=== PATIENT | female | born 1985 | race Asian ===

== ENCOUNTER 2022-05-03 10:58 | Outpatient (REF) | payer OTHER, SELFPAY ==
[2022-05-03 11:43] LABS: Hemoglobin 11.2 g/dl (12.0-16.0); Mean Corpuscular HGB Conc 31.1 g/dl (31.0-35.0); Mean Corpuscular Hemoglobin 25.5 pg (27.0-33.0); Mean Platelet Volume 9.1 fL (9.4-12.3); Platelet Count 421 X10*3/uL (160-400); Red Blood Count 4.39 X10*6/uL (4.20-5.50); Red Cell Distribution Width 13.2 % (11.0-16.0)
[2022-05-03 12:36] LABS: Alanine Aminotransferase 13 U/L (0-31); Albumin Level 4.2 g/dL (3.5-5.0); Alkaline Phosphatase 69 U/L (39-117); Anion Gap 14 (12-20); Aspartate Amino Transferase 19 U/L (5-31); Bilirubin Total 0.4 mg/dL (0.0-1.0); Blood Urea Nitrogen 11 mg/dL (9-16); Calcium 9.2 mg/dL (8.4-10.2); Carbon Dioxide 23 mmol/L (22-29); Chloride 106 mmol/L (96-108); Cholesterol 189 mg/dL; Estimated Glomerular Filt Rate > 60; Glucose Fasting 90 mg/dL (60-99); HDL Cholesterol 49 mg/dL; LDL Cholesterol Calculated 132 mg/dl; Potassium 4.7 mmol/L (3.3-5.1); Sodium 138 mmol/L (135-145); Total Protein 7.9 g/dL (6.5-8.0); Triglycerides 40 mg/dL
[2022-05-03 13:00] LABS: TSH reflex Free T4 3.45 uIU/mL (0.32-4.0)
== END 2022-05-03 10:59 | disposition home or self-care (01) ==
LOC: HO.LAB 10:58
PROVIDERS: PCP Hospitalist; Visit Provider Hospitalist
DX: Z00.00 Encounter for general adult medical examination without abnormal findings (principal)
CPT/HCPCS: 36415; 80053; 80061; 84443; 85027

== ENCOUNTER 2022-07-29 10:24 | Outpatient (REF) | payer OTHER, SELFPAY ==
[2022-07-29 11:23] LABS: Amylase 56 U/L (28-100); Lipase 24 U/L (8-78)
== END 2022-07-29 10:25 | disposition home or self-care (01) ==
LOC: HO.LAB 10:24
PROVIDERS: PCP Hospitalist; Visit Provider Hospitalist
DX: R10.9 Unspecified abdominal pain (principal); R14.2 Eructation; Z87.19 Personal history of other diseases of the digestive system
CPT/HCPCS: 36415; 82150; 83690

== ENCOUNTER 2022-08-10 14:05 | Outpatient (REF) | payer OTHER, SELFPAY ==
[2022-08-10 16:01] LABS: Iron 28 mcg/dL (30-160); Percent Iron Saturation 10 % (15-50); Total Iron Binding Capacity 281 mcg/dL (228-428); Unsaturated Iron Binding 253 ug/dL
[2022-08-10 16:32] LABS: Folate 5.1 ng/mL (> or = 4.0); Vitamin B12 346 pg/mL (200-900)
== END 2022-08-10 14:06 | disposition home or self-care (01) ==
LOC: HO.LAB 14:05
PROVIDERS: PCP Hospitalist; Visit Provider Hospitalist
DX: D64.9 Anemia, unspecified (principal)
CPT/HCPCS: 36415; 82607; 82746; 83540

== ENCOUNTER 2022-08-23 14:38 | Outpatient (REF) | payer OTHER, SELFPAY ==
[2022-08-24 16:13] LABS: CT PCR NOT DETECTED (Not Detect.); NG PCR NOT DETECTED (Not Detect.)
[2022-08-25 14:34] LABS: BV Int Neg Control Negative (Negative); BV Int Pos Control Positive (Positive)
[2022-08-26 05:39] LABS: HPV mRNA E6/E7 rflx Not Detected (Not Detected)
== END 2022-08-23 14:39 | disposition home or self-care (01) ==
LOC: HO.LNP 14:38
PROVIDERS: PCP Hospitalist; Visit Provider Advanced Practice Midwife
DX: Z01.419 Encounter for gynecological examination (general) (routine) without abnormal findings (principal); Z11.51 Encounter for screening for human papillomavirus (HPV); Z87.42 Personal history of other diseases of the female genital tract
CPT/HCPCS: 0353U; 87480; 87510; 87624; 87660; 88142

== ENCOUNTER → 2022-09-06 15:02 | Outpatient (BNVA) | payer OTHER, SELFPAY | PROVIDERS: PCP Hospitalist; Visit Provider Physician Assistant | DX: K80.20 Calculus of gallbladder without cholecystitis without obstruction (principal); R14.2 Eructation | CPT/HCPCS: 99202 ==

== ENCOUNTER → 2022-09-13 15:20 | Outpatient (BNVA) | payer OTHER, SELFPAY | PROVIDERS: PCP Hospitalist; Referring Provider Advanced Practice Midwife; Visit Provider Surgery | DX: N63.25 Unspecified lump in the left breast, overlapping quadrants (principal); K80.20 Calculus of gallbladder without cholecystitis without obstruction; K58.9 Irritable bowel syndrome, unspecified; D64.9 Anemia, unspecified; R19.7 Diarrhea, unspecified | CPT/HCPCS: 99202 ==

== ENCOUNTER 2022-09-13 16:00 | Outpatient (REF) | payer OTHER, SELFPAY ==
[2022-09-13 16:10] LABS: MANUAL DIFF FLAG NO
[2022-09-13 17:05] LABS: Basophils Absolute Auto 0.1 X10*3/uL (0.0-0.2); Basophils Percent Auto 0.7 % (0-2); Eosinophils Absolute Auto 0.4 X10*3/uL (0.0-0.4); Eosinophils Percent Auto 4.7 % (0-4); Hematocrit 36.5 % (37.0-47.0); Hemoglobin 11.5 g/dl (12.0-16.0); Imm Gran Abs Auto 0.01 X10*3/uL (0.00-0.03); Imm Gran Pct Auto 0.1 % (0.0-0.4); Lymphocytes Absolute Auto 2.5 X10*3/uL (1.2-4.9); Lymphocytes Percent Auto 29.9 % (20-40); Mean Corpuscular HGB Conc 31.5 g/dl (31.0-35.0); Mean Corpuscular Hemoglobin 25.6 pg (27.0-33.0); Mean Corpuscular Volume 81.1 fL (80.0-98.0); Mean Platelet Volume 9.1 fL (9.4-12.3); Monocytes Absolute Auto 0.4 X10*3/uL (0.1-1.2); Monocytes Percent Auto 4.3 % (2-11); Neutrophils Absolute Auto 5.1 x10*3/uL (2.0-8.3); Neutrophils Percent Auto 60.3 % (45-73); Platelet Count 393 X10*3/uL (160-400); Red Cell Distribution Width 13.4 % (11.0-16.0); White Blood Count 8.4 X10*3/uL (4.8-10.8)
[2022-09-13 18:13] LABS: Alanine Aminotransferase 14 U/L (0-31); Albumin Level 4.3 g/dL (3.5-5.0); Alkaline Phosphatase 69 U/L (39-117); Anion Gap 11 (12-20); Aspartate Amino Transferase 18 U/L (5-31); Bilirubin Total 0.3 mg/dL (0.0-1.0); Blood Urea Nitrogen 8 mg/dL (9-16); Calcium 9.4 mg/dL (8.4-10.2); Carbon Dioxide 27 mmol/L (22-29); Chloride 105 mmol/L (96-108); Estimated Glomerular Filt Rate > 60; Glucose Random 94 mg/dL (60-115); Potassium 4.1 mmol/L (3.3-5.1); Sodium 139 mmol/L (135-145); Total Protein 7.8 g/dL (6.5-8.0)
[2022-09-13 18:27] LABS: Ferritin 22 ng/mL (10-122)
[2022-09-17 08:54] LABS: Transglutaminase IgA <1.0 U/mL
[2022-09-19 13:39] LABS: Endomysial IgA Antibody Negative (Negative)
== END 2022-09-13 16:01 | disposition home or self-care (01) ==
LOC: HO.US 16:00
PROVIDERS: PCP Hospitalist; Visit Provider Physician Assistant
DX: K80.20 Calculus of gallbladder without cholecystitis without obstruction (principal); D64.9 Anemia, unspecified; K52.9 Noninfective gastroenteritis and colitis, unspecified
CPT/HCPCS: 36415; 80053; 82728; 85025; 86231; 86364

== ENCOUNTER 2022-09-21 14:00 | Outpatient (REF) | payer OTHER, SELFPAY ==
--- NOTE | ~2022-09-21 | MM_ITS ---
EXAMINATION: MM DIAGNOSTIC DIGITAL BREAST TOMOSYNTHESIS, BILATERAL US DIAGNOSTIC ULTRASOUND BREAST, BILATERAL CLINICAL INFORMATION: 37-year-old with palpable concern periareolar outer left breast. No prior breast imaging. No known family history breast cancer. TC score 11%. COMPARISON: None (current study represents initial baseline exam). TECHNIQUE: Digital breast tomosynthesis is performed in both the craniocaudal and mediolateral oblique views along with computer-aided detection (CAD). Synthesized 2D images are generated from the tomosynthesis. Ultrasound of both breasts is performed using grayscale imaging and color Doppler without and with harmonics. Left breast ultrasound is targeted to the area of palpable concern. Patient is able to point to the area at time of imaging. Ultrasound right breast is targeted to the mid upper breast corresponding to small benign-appearing nodule on mammography. FINDINGS: The breasts are heterogeneously dense, which may obscure small masses (ACR BI-RADS breast composition Category c). The palpable concern corresponds to a smooth oval mass just under 2 cm periareolar 3:00 position with partly obscured margins. The right breast has a circumscribed nodule approximately 0.5 cm mid 11:00 position. Remainder of the bilateral breasts show no significant mass or architectural abnormality. There are scattered benign round calcifications and benign rim calcification on right. The axilla and skin contours are unremarkable. Ultrasound left breast demonstrates a circumscribed smooth solid mass at site of clinically palpable concern and corresponding to the mass on mammography 3:00 position measuring 2.1 cm x 1.0 cm. There is scattered internal color flow. Mild increased through-transmission of sound. This most likely represents a fibroadenoma. Ultrasound right breast demonstrates scattered small simple cysts central upper breast, largest measuring 1.2 cm. One of the smaller cysts corresponds to finding on mammography. There is no solid mass or architectural abnormality. Results are discussed with the patient at time of visit. Patient notes the probable fibroadenoma left breast mass is chronic, a few years in duration, but does appear slightly larger. Management options are discussed. Patient is in favor of ultrasound-guided sampling. MM/MM tomosynthesis diagnostic BI IMPRESSION: Left: -Palpable mass 3:00 periareolar breast 2.1 cm, likely fibroadenoma. Right: -No mammographic evidence of malignancy. ASSESSMENT: BI-RADS 4: Suspicious (subcategory 4A: Low suspicion for malignancy) RECOMMENDATION: Ultrasound-guided core biopsy left breast mass. This patient's information was entered into a reminder system with a target due date for their next mammogram.
== END 2022-09-21 14:01 | disposition home or self-care (01) ==
LOC: HO.MAMMO 14:00
PROVIDERS: PCP Hospitalist; Visit Provider Advanced Practice Midwife
DX: N63.25 Unspecified lump in the left breast, overlapping quadrants (principal); N63.11 Unspecified lump in the right breast, upper outer quadrant
CPT/HCPCS: 76642; 77062; 77066

== ENCOUNTER 2022-09-21 15:46 | Outpatient (REF) | payer OTHER, SELFPAY ==
--- NOTE | ~2022-09-21 | US_ITS ---
EXAMINATION: US ABDOMEN COMPLETE CLINICAL INFORMATION: Calculus in gallbladder without cholecystitis without obstruction. COMPARISON: None available. TECHNIQUE: Real-time imaging of the abdominal viscera. FINDINGS: PANCREAS: Normal. ABDOMINAL AORTA: The proximal, mid, and distal segments are normal in caliber. INFERIOR VENA CAVA: Visualized portions are normal. LIVER: Normal. The liver is normal in size. The liver contour is normal. Parenchymal echogenicity is normal. No focal hepatic lesion. There is no intrahepatic biliary duct dilatation seen. GALLBLADDER: Negative sonographic Jacobson sign. The gallbladder is physiologically distended. Multiple mobile gallstones are present. No evidence of gallbladder wall thickening or pericholecystic fluid. COMMON BILE DUCT: Normal in caliber measuring 0.2 cm in diameter. RIGHT KIDNEY: Normal. No hydronephrosis. No renal calculi or focal parenchymal lesions. The kidney measures 12.2 cm in maximum dimension. LEFT KIDNEY: Normal. No hydronephrosis. No renal calculi or focal parenchymal lesions. The kidney measures 10.8 cm in maximum dimension. SPLEEN: Normal. The spleen measures 9.2 cm in maximum dimension. FREE FLUID: None. US/US abdomen complete IMPRESSION: Cholelithiasis without evidence of acute cholecystitis.
== END 2022-09-21 15:47 | disposition home or self-care (01) ==
LOC: HO.US 15:46
PROVIDERS: PCP Hospitalist; Visit Provider Physician Assistant
DX: K80.20 Calculus of gallbladder without cholecystitis without obstruction (principal)
CPT/HCPCS: 76700

== ENCOUNTER 2022-09-27 10:05 | Outpatient (REF) | payer OTHER, SELFPAY ==
--- NOTE | ~2022-09-27 | MM_ITS ---
EXAMINATION: ULTRASOUND GUIDED CORE BIOPSY BREAST, LEFT POST PROCEDURE DIGITAL BREAST TOMOSYNTHESIS, LEFT CLINICAL INFORMATION: Circumscribed solid mass 2.1 cm anterior left breast, likely fibroadenoma. Age 37. TC score 11%. COMPARISON: Mammography and bilateral breast ultrasound 09/21/2022. FINDINGS: Proper informed consent is obtained from the patient after discussion of the procedure, potential risks and complications, and alternatives. Patient was given an opportunity for questions. The patient appeared to understand. The patient consented to the procedure and signed the consent form. GUIDANCE: Ultrasound-guided; aseptic technique. LESION: Circumscribed solid oval mass anterior left breast, 2.1 cm, likely fibroadenoma. APPROACH: Oblique lateral medial. ANESTHESIA: 9 mL carbonated 1% lidocaine. DERMATOTOMY: Single skin lauro dermatotomy performed. NEEDLE: 14-gauge Achieve core biopsy device with 13.5-gauge co-axial guide needle. CORES: 4. CLIP: HydroMARK; shape: butterfly. POST PROCEDURE DIGITAL BREAST TOMOSYNTHESIS, LEFT: The post biopsy mammogram is performed in separate room using separate digital breast tomosynthesis equipment from the biopsy procedure. CC and ML views are obtained.Synthesized images are also obtained from the tomography. The breasts are heterogeneously dense, which may obscure small masses (breast composition category: c). The clip marker is in position. No gross hematoma. The patient tolerated the procedure well. No immediate complications. Home instructions reviewed with the patient. Final pathology results are pending. MM/MM tomosynthesis diagnostic LT IMPRESSION: 1. Status post ultrasound-guided core biopsy left breast. 2. Clip placed: HydroMARK; shape: butterfly. 3. Pathology pending. An addendum report will be issued.
[2022-09-27] MEDS: Sodium Bicarbonate 8.4% 50 MEQ/50 ML VIAL SUBCUT (11:14)
[2022-09-27] MEDS: Lidocaine HCl 1 % 20 ML VIAL 10 ML SUBCUT (11:15)
== END 2022-09-27 10:06 | disposition home or self-care (01) ==
LOC: HO.MAMMO 10:05
PROVIDERS: PCP Hospitalist; Visit Provider Hospitalist
DX: N63.25 Unspecified lump in the left breast, overlapping quadrants (principal)
CPT/HCPCS: 19083; 77061; 77065; 88305

== ENCOUNTER → 2022-10-04 15:04 | Outpatient (BNVA) | payer OTHER, SELFPAY | PROVIDERS: PCP Hospitalist; Referring Provider Hospitalist; Visit Provider Surgery | DX: R92.8 Other abnormal and inconclusive findings on diagnostic imaging of breast (principal); D24.2 Benign neoplasm of left breast | CPT/HCPCS: 99212 ==

== ENCOUNTER → 2023-03-07 14:30 | Outpatient (BNV) | payer OTHER, SELFPAY | PROVIDERS: Visit Provider Radiology Diagnostic Radiology | DX: N63.25 Unspecified lump in the left breast, overlapping quadrants (principal) | CPT/HCPCS: 77061; 77065 ==

== ENCOUNTER 2023-03-07 14:34 | Outpatient (REF) | payer OTHER, SELFPAY ==
--- NOTE | ~2023-03-07 | MM_ITS ---
EXAMINATION: MM DIAGNOSTIC DIGITAL BREAST TOMOSYNTHESIS, LEFT CLINICAL INFORMATION: 6 month follow-up benign left breast biopsy of 3:00 retroareolar fibroadenoma. No evidence of malignancy or atypia. COMPARISON: Mammography: 09/27/2022, 09/21/2022. ULTRASOUND: 09/01/2022. 09/27/2022 ultrasound guided breast biopsy. TECHNIQUE: Digital left breast tomosynthesis is performed in both the craniocaudal and mediolateral oblique views along with computer-aided detection (CAD). Synthesized 2D images are generated from the tomosynthesis. FINDINGS: The breasts are heterogeneously dense, which may obscure small masses (ACR BI-RADS breast composition Category c). Stable biopsied 2.1 cm lobular mass in the 3:00 retroareolar axis consistent with fibroadenoma. There are scattered dystrophic type benign calcifications in the left breast. No developing masses, developing suspicious clustered calcifications, or developing regions of architectural distortion in the left breast. MM/MM tomosynthesis diagnostic LT IMPRESSION: Benign findings left breast. No findings suspicious for malignancy. Stable 2.1 cm fibroadenoma 3:00 left breast periareolar region appears unchanged with internal butterfly biopsy clip. Biopsy demonstrated no evidence of atypia or malignancy. Recommend the patient return to routine annual screening mammography at age 42. ASSESSMENT: BI-RADS BI-RADS 2 - Benign Findings RECOMMENDATION: Mammo at 42 or earlier if clinically needed Results were provided to the patient at time of visit by the technologist. This patient's information was entered into a reminder system with a target due date for their next mammogram.
== END 2023-03-07 14:35 | disposition home or self-care (01) ==
LOC: HO.MAMMO 14:34
PROVIDERS: Visit Provider Surgery
DX: R92.8 Other abnormal and inconclusive findings on diagnostic imaging of breast (principal)
CPT/HCPCS: 77061; 77065

== ENCOUNTER 2025-04-09 16:03 | Outpatient (AMB) | payer OTHER, SELFPAY ==
--- NOTE | 2025-04-09 16:05 | A.OFFVIS_ITS ---
Vital Signs 04/09/25 16:11 Height 5 ft 5 in Weight 165 lb 5.547 oz BMI 27.5 Blood Pressure Location Lt brachial Position Sitting Intake Visit Reasons: Belching symptoms Intake Note: Patient complex follow up for Belching symptoms/Vee dumont was 09/06/2022. Patient cc: abdominal pain on and off, constipation, acid reflux with some burning sensation and loud burping. Hx of gallstone, she did an US on 2022 and she wanted to know the results. Animal Treatment Investigator Required: No Accompanied by: Self / Same As Patient Allergies Seasonal Allergies Allergy (Mild, Verified 04/09/25 16:05) Unknown fruits Allergy (Mild, Uncoded 10/04/22 15:36) Unknown Medication List - Last Reconciled 04/09/25 by Alisson Grijalva CNP HPI HPI Belching symptoms: Details: Patient is a 39-year-old female without significant PMH. Last visit with BRYON Samaniego 09/06/2022 for belching Her primary complaints are excessive gas, mostly manifesting as belching, and a sensation of something being stuck in her abdomen or back. She has also experienced heartburn and regurgitation of food or liquid particles within the last couple of months. The patient reports occasional sharp pain in the right upper quadrant. She has a known history of gallstones since approximately 2013, which were confirmed via an abdominal ultrasound in August 2022. The 2022 ultrasound showed multiple gallstones but was otherwise normal, with no abnormalities noted in the liver, bile ducts, kidneys, or spleen. She has not had a surgical follow-up for her gallstones. Her appetite is good, and her weight has been stable. She has daily bowel movements and denies dysphagia, significant nausea or vomiting, or blood in the stool. She has a history of low iron, for which she previously took an iron supplement but is not currently taking it. She reports other concerns, including intermittent swelling of her fingers and feet and a rash around her vagina extending into her buttock area, which is associated with some reddish discoloration on wiping. That she attributes to vaginal bleeding. The patient does not currently have a primary care provider. Patient denies: fever/chills, n/v, appetite changes, dysphasia, unintentional wt loss or melena/hematochezia. Social hx: -denies ETOH use -denies recreational drug use -non-smoker - family hx as below -denies personal hx of CA -denies significant cardiopulmonary history -tolerated anesthesia in the past without difficulty [facility] Medical History (Updated 04/10/25 @ 08:01 by Alisson Grijalva CNP) MARISOL (iron deficiency anemia) Right upper quadrant pain No pertinent past medical history Surgical History History of repair of hiatal hernia S/P appendectomy Family History Father Diabetes Hypertension Paternal Grandfather Lung cancer Mother Hypertension Maternal Grandmother Liver cancer Social History Housing: House Patient Tobacco Use Status: Never used Tobacco e-Cigarette/Vaping Use: Never Used Second Hand Smoke Exposure: No service: No Current occupational status: employed Current occupational exposures/hazards: No Female Reproductive History Menstrual Age of Menarche: 16 Review of Systems Const Reports as per HPI ENT Reports as per HPI Card Reports as per HPI Resp Reports as per HPI GI Reports as per HPI Reports as per HPI Physical Exam Vital Signs: BMI result Body Mass Index 27.5 Const General: healthy appearing, no acute distress and well developed Nutritional Appearance: average body habitus Orientation/consciousness: patient oriented x3 HEENT Head: Yes normal to inspection, Yes normocephalic and Yes atraumatic Face and sinus: Yes normal facial exam Eyes General: appearance normal, both eyes and all related structures Neck Neck: Yes normal visual inspection Resp Effort & Inspection: normal respiratory effort, able to speak in complete sentences, no tracheal deviation and symmetric chest movement Cardio Jugular venous distension: no JVD GI Inspection: Yes normal to inspection and No distended Palpation (GI): Soft to palpation, not firm, nontender and No hepatosplenomegaly present Auscultation: normal bowel sounds Neuro General: patient oriented x3 Gait exam (Neuro): Normal gait present Psych Appearance: grossly normal Mental Status: mental status grossly normal Speech and movement: Normal speech and movement present Affect: normal affect Attitude: cooperative Thought process: Normal thought process present Thought content: Normal thought content present Insight: Good insight present (Psych) Judgement: Good judgement present (Psych) Results Reviewed Results Reviewed: Date of Service: 09/21/22 Procedure(s): US abdomen complete Accession Number(s): [id number] cc: Vee Romero PA-C~ EXAMINATION: US ABDOMEN COMPLETE CLINICAL INFORMATION: Calculus in gallbladder without cholecystitis without obstruction. COMPARISON: None available. TECHNIQUE: Real-time imaging of the abdominal viscera. FINDINGS: PANCREAS: Normal. ABDOMINAL AORTA: The proximal, mid, and distal segments are normal in caliber. INFERIOR VENA CAVA: Visualized portions are normal. LIVER: Normal. The liver is normal in size. The liver contour is normal. Parenchymal echogenicity is normal. No focal hepatic lesion. There is no intrahepatic biliary duct dilatation seen. GALLBLADDER: Negative sonographic Jacobson sign. The gallbladder is physiologically distended. Multiple mobile gallstones are present. No evidence of gallbladder wall thickening or pericholecystic fluid. COMMON BILE DUCT: Normal in caliber measuring 0.2 cm in diameter. RIGHT KIDNEY: Normal. No hydronephrosis. No renal calculi or focal parenchymal lesions. The kidney measures 12.2 cm in maximum dimension. LEFT KIDNEY: Normal. No hydronephrosis. No renal calculi or focal parenchymal lesions. The kidney measures 10.8 cm in maximum dimension. SPLEEN: Normal. The spleen measures 9.2 cm in maximum dimension. FREE FLUID: None. US/US abdomen complete IMPRESSION: Cholelithiasis without evidence of acute cholecystitis. Assessment & Plan Assessment & Plan (1) Belching symptom: Code(s): R14.2 - Eructation Category: Medical Plan: To rule out H. pylori as a cause for her symptoms, an H. pylori urea breath test will be performed in the office at pt earliest convenience. - If the test is positive, she will be treated with a 14-day course of quadruple therapy. - The patient was provided with education and a handout on a low-FODMAP diet to help manage gas-related symptoms. - The patient declined a prescription for as-needed simethicone, stating it was not effective for her in the past. (2) Gallstones: Code(s): K80.20 - Calculus of gallbladder without cholecystitis without obstruction Category: Medical Plan: Given the two-year interval since her last imaging, an updated abdominal ultrasound will be ordered. - A referral will be placed for a consultation with General Surgery to evaluate for cholecystectomy. (3) MARISOL (iron deficiency anemia): Code(s): D50.9 - Iron deficiency anemia, unspecified Category: Medical Qualifiers: Iron deficiency anemia type: unspecified iron deficiency Qualified Code(s): D50.9 - Iron deficiency anemia, unspecified Plan: Due to her history of low iron, fasting labs including a CBC will be ordered to re-evaluate her for anemia. Plan Follow-up after US or sooner as needed Time: I spent a total of 30 minutes on the date of encounter which includes: Preparing to see the patient (reviewed previous documentation, test results and medical history) Performing a medically appropriate exam and/or evaluation Ordering medications, tests, and procedures Documenting clinical information in the health record Orders: Orders US abdomen complete 04/09/25 K80.20 - Calculus of gallbladder without cholecystitis without obstruction Comprehensive [place]. Panel Fast 04/09/25 K80.20 - Calculus of gallbladder without cholecystitis without obstruction, R10.11 - Right upper quadrant pain IRON PROFILE 04/09/25 D64.9 - Anemia, unspecified H Pylori Breath Test 04/09/25 R14.2 - Eructation Complete Blood Count Auto Diff 04/09/25 D64.9 - Anemia, unspecified Referrals General Surgery Referral K80.20 - Calculus of gallbladder without cholecystitis without obstruction Patient Instructions: It is highly recommended that you find a primary care provider (PCP) for your overall health needs and for issues not related to your digestive system, such as the ASSEMBLER CONVERTIBLE TOP symptoms you described. Coding Level of Care Code Established Pt Est Pt Level 4 (09578) Patient Type Established Diagnoses Belching symptom R14.2 Gallstones K80.20 Iron deficiency anemia, unspecified iron deficiency anemia type D50.9 Iron deficiency anemia type: unspecified iron deficiency
[2025-04-09 16:11] VITALS: BMI 27.5
--- OUTSIDE RECORDS SUMMARY | 2025-04-10 00:46 | XMS_ITS | Clinical Summary ---
Author Organization [facility] Address [address] [place] [address] Phone Care Team Providers Care Photo Tech Name Role Phone Physician, No Pcp Primary Care Provider Unavaila ble Allergies No known active allergies Social History Tobacco Use Types Packs/Day Years Used Date Smoking Tobacco: Never Assessed Comments No Sex and Gender Information Value Date Recorded Sex Assigned at Not on file Legal Sex Female 9:42 PM EDT Gender Identity Not on file Sexual Orientation Not on file Last Filed Vital Signs Vital Sign Reading Time Taken Comments Blood Pressure 105/81 01/03/2025 9:51 PM EDT Pulse 67 01/03/2025 9:51 PM EDT Temperature 36.5 C (97.7 F) 01/03/2025 9:51 PM EDT Respiratory Rate 16 01/03/2025 9:51 PM EDT Oxygen Saturation 100% 01/03/2025 9:51 PM EDT Inhaled Oxygen Concentration - - Weight 77 kg (169 lb 12.1 oz) 01/03/2025 9:51 PM EDT Height 167.6 cm (5' 6 ) 01/03/2025 9:51 PM EDT Body Mass Index 27.4 01/03/2025 9:51 PM EDT Plan of Treatment Health Maintenance Due Date Last Done Comments DTaP,Tdap,and Td Vaccines (1 - Tdap) 2006 Hepatitis B Vaccines (1 of 3 - 19+ 3-dose series) 2006 Cervical Cancer Screening: P ap Smear 2008 HPV Vaccines (1 - 3-dose SCD M series) 2014 Depression Screening 05/01/2024 COVID-19 Vaccine ( - 2024-2 6 season) 2024 Influenza Vaccine (#1) 2024 HIV Screening 01/03/2025 Hepatitis C Screening 01/03/2025 Social Influencers of Health Screening 01/03/2025 RSV Immunization Adult Patie nts (1 - 1-dose 75+ series) 2062 HIB Vaccines Aged Out No longer eligi ble based on patient's age to complete this topic Hepatitis A Vaccines Aged Out No long er eligible based on patient's age to complete this topic IPV Vaccines Aged Out No longer eligi ble based on patient's age to complete this topic MMR Vaccines Aged Out No longer eligi ble based on patient's age to complete this topic Meningococcal ACWY Vaccine Aged Out N o longer eligible based on patient's age to complete this topic Meningococcal B Vaccine Aged Out No l onger eligible based on patient's age to complete this topic Pneumococcal Vaccine: Pediat rics (0 to 5 Years) and At-Risk Patients (6 to 49 Years) Aged Out No longer eligible b ased on patient's age to complete this topic RSV Immunization Patients Un madeline 20 months Aged Out No longer eligible b ased on patient's age to complete this topic Varicella Vaccines Aged Out No longer eligible based on patient's age to complete this topic [place] [address] [place] [address] [place] [address] Care Teams Photo Tech Relationship Specialty Start Date End Date Physician, No Pcp PCP - General 01/04/25
== END 2025-04-09 16:49 | disposition home or self-care (01) ==
LOC: HO.HGI 16:04
PROVIDERS: Visit Provider Nurse Practitioner Family
DX: R14.2 Eructation (principal); K80.20 Calculus of gallbladder without cholecystitis without obstruction; D50.9 Iron deficiency anemia, unspecified
CPT/HCPCS: 99214

== ENCOUNTER → 2025-04-09 16:03 | Outpatient (BNVA) | payer OTHER, SELFPAY | PROVIDERS: Visit Provider Nurse Practitioner Family | DX: R14.2 Eructation (principal); K80.20 Calculus of gallbladder without cholecystitis without obstruction; D50.9 Iron deficiency anemia, unspecified; N89.8 Other specified noninflammatory disorders of vagina; N93.9 Abnormal uterine and vaginal bleeding, unspecified | CPT/HCPCS: 99212 ==

== ENCOUNTER 2025-04-11 08:02 | Outpatient (REF) | payer OTHER, SELFPAY ==
[2025-04-11 08:15] LABS: MANUAL DIFF FLAG NO
[2025-04-11 08:49] LABS: Hematocrit 36.3 % (37.0-47.0); Hemoglobin 11.3 g/dl (12.0-16.0); Imm Gran Abs Auto 0.02 X10*3/uL (0.00-0.03); Imm Gran Pct Auto 0.3 % (0.0-0.4); Lymphocytes Absolute Auto 1.7 X10*3/uL (1.2-4.9); Mean Corpuscular HGB Conc 31.1 g/dl (31.0-35.0); Mean Corpuscular Hemoglobin 25.6 pg (27.0-33.0); Mean Corpuscular Volume 82.3 fL (80.0-98.0); NRBC Abs Auto 0.000 X10*3/uL (0.0-0.012); NRBC Pct Auto 0.0 /100WBC (0.0-0.2); Platelet Count 302 X10*3/uL (160-400); Red Blood Count 4.41 X10*6/uL (4.20-5.50); White Blood Count 6.6 X10*3/uL (4.8-10.8)
[2025-04-11 09:45] LABS: Alanine Aminotransferase 21 U/L (0-31); Albumin Level 4.3 g/dL (3.5-5.0); Alkaline Phosphatase 57 U/L (39-117); Anion Gap 8 (12-20); Aspartate Amino Transferase 25 U/L (5-31); Blood Urea Nitrogen 10 mg/dL (9-16); Calcium 8.5 mg/dL (8.4-10.2); Carbon Dioxide 26 mmol/L (22-29); Chloride 109 mmol/L (96-108); Estimated Glomerular Filt Rate > 60; Iron 35 mcg/dL (30-160); Percent Iron Saturation 13 % (15-50); Potassium 4.0 mmol/L (3.3-5.1); Sodium 139 mmol/L (135-145); Total Iron Binding Capacity 269 mcg/dL (228-428); Total Protein 7.3 g/dL (6.5-8.0); Unsaturated Iron Binding 234 ug/dL
== END 2025-04-11 08:03 | disposition home or self-care (01) ==
LOC: HO.LAB 08:02
PROVIDERS: Visit Provider Nurse Practitioner Family
DX: K80.20 Calculus of gallbladder without cholecystitis without obstruction (principal); D64.9 Anemia, unspecified; R14.2 Eructation; R10.11 Right upper quadrant pain
CPT/HCPCS: 36415; 80053; 83013; 83540; 85025; 99211

== ENCOUNTER 2025-04-11 08:18 | Outpatient (AMB) | payer OTHER, SELFPAY ==
--- NOTE | 2025-04-11 08:57 | AM.OFFVISNUR ---
Intake Visit Reasons: h pylori Allergies Seasonal Allergies Allergy (Mild, Verified 04/11/25 08:56) Unknown fruits Allergy (Mild, Uncoded 10/04/22 15:36) Unknown Nursing Note Patient presents for collection of?H Pylori?breath test. Patient has been fasting for 1 hour (nothing to eat, drink, no chewing gum or smoking) has not taken any antacid medication for at least 2 weeks and has no allergies to artificial sweeteners.?? Assessment & Plan Assessment & Plan (1) Right upper quadrant pain: Code(s): R10.11 - Right upper quadrant pain Category: Medical (2) Belching symptom: Code(s): R14.2 - Eructation Category: Medical Plan Patient presents for collection of?H Pylori?breath test. Patient has been fasting for 1 hour (nothing to eat, drink, no chewing gum or smoking) has not taken any antacid medication for at least 2 weeks and has no allergies to artificial sweeteners.???This test checks for an overgrowth of bacteria in your stomach. We all have bacteria but some may have more than others. It is treatable. if the test comes back negative there is nothing else to do. If the test result is positive we will treat you with 2 antibiotics and a medication to decrease the acid in your stomach (PPI) for 2 weeks. Two weeks after you have completed the treatment we will retest you to make sure the overgrowth has resolved. Patient Instructions: Process for specimen collection and reason for testing was explained to the patient. Specimen collection. Patient instructed to take a deep breath and then exhale into the blue bag, filling it up as much as possible. Patient instructed to drink a mixture of water and the artificial sweetener with a straw. A 15 minute wait period was observed. Patient instructed to take a deep breath and then exhale into the pink bag, filling it up as much as possible.?? <del>?</del> <del>??</del> Coding Level of Care Code Established Pt Est Pt Level 1 (65033) Patient Type Established Diagnoses Right upper quadrant pain R10.11 Belching symptom R14.2
== END 2025-04-11 09:10 | disposition home or self-care (01) ==
LOC: HO.HGI 08:19
PROVIDERS: Visit Provider Nurse Practitioner Family
DX: R10.11 Right upper quadrant pain (principal); R14.2 Eructation